=== PATIENT | male | born 1990 | race Caucasian/White ===

== ENCOUNTER 2017-11-22 10:22 | Emergency (ER) | payer OTHER ==
--- NOTE | 2017-11-22 10:33 | PDOC ---
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 Patient states he lost consciousness, however EMS states witness saw fall and patient did not hit head. No chest pain, palpitations or SOB. Has a slight headache. Did not take anything for pain. Hurts to walk on ankle. Occurred: reports: just prior to arrival, this morning Severity: reports: mild Past History - Past Medical History Allergies/Adverse Reactions: Allergies Allergy/AdvReac Type Severity Reaction Status Date / Time No Known Allergies Allergy Verified 11/22/17 10:32 Home Medications: Ambulatory Orders NK [No Known Home Medication] 11/22/17 Review of Systems - Review of Systems Able to Perform ROS?: Yes Is the patient limited Tamazight proficient: No Constitutional: No: Chills, Fever HEENTM: No: Blurred Vision Respiratory: No: Cough, Shortness of Breath Cardiac (ROS): No: Chest Pain, Palpitations ABD/GI: No: Diarrhea, Nausea, Vomiting : No: Dysuria Integumentary: No: Bruising Neurological: No: Headache All Other Systems: Reviewed and Negative *Physical Exam - Physical Exam General Appearance: Yes: Nourished, Appropriately Dressed. No: Apparent Distress HEENT: positive: EOMI, ESTELA, Normal ENT Inspection, Normal Voice, Symmetrical, Pharynx Normal Neck: positive: Trachea midline, Normal Thyroid, Supple (no spijnous process tenderness, full ROM). negative: Tender, Rigid Respiratory/Chest: positive: Lungs Clear, Normal Breath Sounds. negative: Chest Tender, Respiratory Distress Cardiovascular: positive: Regular Rhythm, Regular Rate, S1, S2. negative: Edema , JVD, Murmur Vascular Pulses: Femoral (R): 4+, Femoral (L): 4+, Carotid (R): 4+, Carotid (L) : 4+, Dorsalis-Pedis (R): 4+, Doralis-Pedis (L): 4+ Gastrointestinal/Abdominal: positive: Normal Bowel Sounds, Flat, Soft. negative : Tender, Organomegaly, Pulsatile Mass Lymphatic: negative: Adenopathy, Tenderness, Other Musculoskeletal: positive: Normal Inspection. negative: CVA Tenderness Extremity: positive: Normal Capillary Refill, Normal Inspection, Tender, Swelling (minimal, full ROM of right knee, non tender, no swelling noted). 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 NML intact, Fully Oriented, Alert, Normal Mood/ Affect, Normal Response, Motor Strength 02/16 ED Treatment Course - ADDITIONAL ORDERS Additional order review: 11/22/17 11:55 X ray right ankle no fracture seen CT head neg for bleed Progress Note - Progress Note Progress Note: S/P fall on ice, hit head LOC, will obtain CT and x-ray, pt is in agreement with plan Will place on crutches ashutosh wrap and ice Motrin Follo wup with PMD Head injury handout IF worsen return to ER Pt feeling better, agrees with plan *DC/Admit/Observation/Transfer Diagnosis at time of Disposition: Right ankle sprain Qualifiers: Encounter type: initial encounter Involved ligament of ankle: unspecified ligament Qualified Code(s): S93.401A - Sprain of unspecified ligament of right ankle, initial encounter Head injury Qualifiers: Encounter type: initial encounter Qualified Code(s): S09.90XA - Unspecified injury of head, initial encounter - Discharge Dispostion Disposition: HOME Condition at time of disposition: Stable - Referrals - Patient Instructions Printed Discharge Instructions: DI for Closed Head Injury, DI for Ankle Sprain Additional Instructions: ICe, Motrin, rest, elevate Ashutosh wrap during day, off at night Crutches for non weight bearing If worsen return to ER Head injury handout given - Post Discharge Activity
[2017-11-22 10:36] VITALS: BP 114/61; PULSE 99; TEMP 98.9; BMI 50.2
[2017-11-22] MEDS ORDERED: ACETAMINOPHEN 325 MG TABLET (FP) PO ONE (11:00)
[2017-11-22] MEDS ORDERED: ALBUTEROL SO4 2.5/IPRATROPIUM 0.5 INH SOL 3 ML VIAL.NEB. NEB ONE (12:12)
[2017-11-22] MEDS ORDERED: methylPREDNISolone NA SUCC 40 MG/1 ML VIAL IVPUSH ONE (12:12)
== END 2017-11-22 12:10 | disposition home or self-care (01) ==
LOC: FER 10:22
PROC: 3E0F7GC Introduction of Other Therapeutic Substance into Respiratory Tract, Via Natural or Artificial Opening (ICD-10-PCS; principal; 2017-11-22)
DX: S93.401A Sprain of unspecified ligament of right ankle, initial encounter (principal); S09.90XA Unspecified injury of head, initial encounter; W00.0XXA Fall on same level due to ice and snow, initial encounter; Y93.89 Activity, other specified; Y92.410 Unspecified street and highway as the place of occurrence of the external cause
CPT/HCPCS: 70450-TC; 73610-TC-RT-FY; 99283-25